=== PATIENT | male | born 1995 | race Caucasian/White ===

== ENCOUNTER 2017-03-11 13:39 | Emergency (ER) | payer OTHER ==
[2017-03-11 13:42] VITALS: BP 138/61; PULSE 78; RESP 18; TEMP 97.5
[2017-03-11] MEDS ORDERED: IBUPROFEN 800 MG TAB PO STA (13:52)
--- NOTE | 2017-03-11 14:05 | ED ---
Lower Extremity Injury HPI - General Chief Complaint: Extremity Injury, Lower Stated Complaint: L ankle injury Time Seen by Provider: 03/11/17 13:47 Source: patient Mode of arrival: ambulatory Limitations: no limitations - History of Present Illness Initial Comments: Patient is a 21-year-old white male presenting to the emergency department with complaints of left ankle pain. Patient states he jumped out of a tractor and believes he landed on his ankle wrong. Patient unsure if he everted or inverted his ankle. Patient states that injury happened at 10 AM today. Patient denies previous injury or surgery to left lower extremity. Patient was able to ambulate at the scene of accident and is ambulating in the emergency department. No treatment prior to arrival. - Related Data Previous Rx's Medication Instructions Recorded predniSONE 20 mg PO DIRECTED #30 tab 03/12/15 Ibuprofen [Motrin] 800 mg PO TID #12 tab 03/11/17 Allergies Allergy/AdvReac Type Severity Reaction Status Date / Time No Known Allergies Allergy Verified 03/11/17 13:42 Review of Systems ROS Statement: Those systems with pertinent positive or pertinent negative responses have been documented in the HPI. ROS Other: All systems not noted in ROS Statement are negative. Past Medical History Past Medical History: No Reported History History of Any Multi-Drug Resistant Organisms: None Reported Past Surgical History: No Surgical Hx Reported Past Psychological History: No Psychological Hx Reported Smoking Status: Former smoker Past Alcohol Use History: None Reported Past Drug Use History: None Reported General Exam Limitations: no limitations General appearance: alert, in no apparent distress Head exam: Present: atraumatic, normocephalic, normal inspection Eye exam: Present: normal appearance Neck exam: Present: normal inspection, full ROM. Absent: tenderness, lymphadenopathy Respiratory exam: Present: normal lung sounds bilaterally. Absent: respiratory distress, wheezes, rales, rhonchi Cardiovascular Exam: Present: regular rate, normal rhythm, normal heart sounds. Absent: systolic murmur GI/Abdominal exam: Present: soft, normal bowel sounds. Absent: tenderness Left Lower Leg exam: Present: normal inspection, full ROM. Absent: tenderness, swelling Ankle exam: Present: normal inspection, full ROM, tenderness (Tenderness inferior to left lateral malleolus ). Absent: swelling, abrasion, ecchymosis, anterior draw sign Foot/Toe exam: Present: normal inspection, full ROM. Absent: tenderness, swelling Neurovascular tendon exam: Present: no vascular compromise. Absent: pulse deficit, abnormal cap refill, motor deficit, sensory deficit, tendon deficit, extremity cold to touch, pallor, foot drop, significant pain with passive ROM of distal joint Gait: observed and normal Back exam: Present: normal inspection, full ROM Neurological exam: Present: alert, oriented X3, normal gait, other (No focal deficits noted) Psychiatric exam: Present: normal affect, normal mood Skin exam: Present: warm, dry, intact, normal color Course Vital Signs 03/11/17 13:41 Temperature 97.5 F L Pulse Rate 78 Respiratory 18 Rate Blood Pressure 138/61 O2 Sat by Pulse 99 Oximetry Medical Decision Making - Medical Decision Making Left ankle strain. X-ray negative for dislocation or fracture. Patient instructed to follow-up with orthopedic service if pain persists for more than 7 -10 days. Patient instructed to return to the emergency department with new or worsening symptoms. Patient agrees to plan of care. Discharge instructions and return parameters reviewed. - Radiology Data Radiology results: report reviewed Left ankle x-ray: No evidence for fracture or dislocation. Ankle mortise is intact. Soft tissues are within normal limits. As read by Dr. Young. Disposition Clinical Impression: Left ankle strain Disposition: HOME SELF-CARE Condition: Good Instructions: Ankle Strain (ED) Additional Instructions: Avoid activity that causes pain Ice 20 minutes 4 times a day usually for 2-3 days Keep elevated as much as possible 24-48 hours. Continue Motrin 800 mg 3 times a day for next 24-48 hours. Return to the emergency department with symptoms of increased swelling, pain, numbness, tingling, or foot feeling cold to touch. Follow-up with orthopedic service if pain persist more than 7-10 days. Prescriptions: Ibuprofen [Motrin] 800 mg PO TID #12 tab Referrals: Joseph Mayberry MD [STAFF PHYSICIAN] - 1-2 days None,Stated [Primary Care Provider] - 1-2 days Time of Disposition: 14:11
--- NOTE | 2017-03-11 14:09 | XR ---
EXAMINATION TYPE: XR ankle complete LT DATE OF EXAM: 03/11/2017 COMPARISON: NONE HISTORY: Pain TECHNIQUE: 3 views of the left ankle are submitted for evaluation. FINDINGS: There is no evidence for fracture or dislocation. Ankle mortise is intact. Soft tissues are within normal limits. IMPRESSION: 1. No evidence for acute fracture.
== END 2017-03-11 14:24 | disposition home or self-care (01) ==
LOC: EC 13:39
DX: S96.912A Strain of unspecified muscle and tendon at ankle and foot level, left foot, initial encounter (principal); Z87.891 Personal history of nicotine dependence; W30.9XXA Contact with unspecified agricultural machinery, initial encounter
CPT/HCPCS: 99283

== ENCOUNTER 2017-04-11 13:20 | Emergency (ER) | payer OTHER ==
[2017-04-11 13:29] VITALS: RESP 17
--- NOTE | 2017-04-11 13:37 | ED ---
General Adult HPI - General Chief complaint: Extremity Injury, Lower Stated complaint: IHS/Ankle Pain Time Seen by Provider: 04/11/17 13:25 Source: patient, RN notes reviewed Mode of arrival: ambulatory Limitations: no limitations - History of Present Illness Initial comments: This is a 21-year-old male who presents emergency Department complaining of left ankle pain. Patient states she jumped off a truck at work and twisted his ankle. Patient complains of lateral ankle pain mostly been a little bit of medial ankle pain as well. Patient denies any upper leg pain any knee pain or hip pain. Patient denies any foot pain. - Related Data Previous Rx's Medication Instructions Recorded Hydrocodone/Acetaminophen [[place] 1 each PO Q4HR PRN #20 tab 04/11/17 5-325] Ibuprofen [Motrin] 600 mg PO Q6HR PRN #20 tab 04/11/17 Allergies Allergy/AdvReac Type Severity Reaction Status Date / Time No Known Allergies Allergy Verified 04/11/17 13:43 Review of Systems ROS Statement: Those systems with pertinent positive or pertinent negative responses have been documented in the HPI. ROS Other: All systems not noted in ROS Statement are negative. Past Medical History Past Medical History: No Reported History History of Any Multi-Drug Resistant Organisms: None Reported Past Surgical History: No Surgical Hx Reported Past Psychological History: No Psychological Hx Reported Smoking Status: Current every day smoker Past Alcohol Use History: None Reported Past Drug Use History: None Reported General Exam - General Exam Comments Initial Comments: GENERAL Patient is well-developed and well-nourished. Patient is in mild distress. EYES Patient's pupils are equal and round. Extraocular motion is intact SKIN Unremarkable NEURO The patient is alert and oriented 3 PYSCH Patient has normal interpersonal interactions. MUSCULOSKELETAL Left ankle is swollen laterally and tender laterally with a little medial malleolus tenderness. Limitations: no limitations Course Vital Signs 04/11/17 13:27 Temperature 97.6 F Pulse Rate 94 Respiratory 17 Rate Blood Pressure 138/64 O2 Sat by Pulse 96 Oximetry Procedures - Orthopedic Splinting/Casting Injury #1 Side: left Lower Extremity Injury Location: lower leg Lower Extremity Immobilizer: posterior splint Additional Comments: This is a short leg splint. Medical Decision Making - Medical Decision Making X-ray showed no acute fracture. Patient was unable to ambulate so I placed the patient is a splint and told to follow up with or so and not to have any weightbearing on that leg. Disposition Clinical Impression: Ankle sprain Disposition: HOME SELF-CARE Condition: Good Instructions: Ankle Sprain (ED) Prescriptions: Hydrocodone/Acetaminophen [Goodrich 5-325] 1 each PO Q4HR PRN #20 tab PRN Reason: Pain Ibuprofen [Motrin] 600 mg PO Q6HR PRN #20 tab PRN Reason: For pain Referrals: None,Stated [Primary Care Provider] - 1-2 days Time of Disposition: 14:35
--- NOTE | 2017-04-11 13:53 | XR ---
EXAMINATION TYPE: XR ankle complete LT DATE OF EXAM: 04/11/2017 COMPARISON: NONE HISTORY: Pain TECHNIQUE: 3 views of the left ankle are submitted for evaluation. FINDINGS: There is no evidence for fracture or dislocation. Ankle mortise is intact. Lateral soft tis tabatha swelling noted. IMPRESSION: 1. No evidence for acute fracture.
[2017-04-11 14:38] VITALS: BP 123/60; PULSE 82; TEMP 99.4
== END 2017-04-11 15:08 | disposition home or self-care (01) ==
LOC: EC 13:20
DX: S93.402A Sprain of unspecified ligament of left ankle, initial encounter (principal); F17.200 Nicotine dependence, unspecified, uncomplicated; X50.1XXA Overexertion from prolonged static or awkward postures, initial encounter; Y93.39 Activity, other involving climbing, rappelling and jumping off; Y99.0 Civilian activity done for income or pay
CPT/HCPCS: 29515; 99283

== ENCOUNTER 2019-11-06 12:49 | Emergency (ER) | payer BC, OTHER ==
[2019-11-06 13:00] VITALS: RESP 18; TEMP 98.7
[2019-11-06] MEDS ORDERED: ACETAMINOPHEN TAB 500 MG TAB PO STA (13:16)
--- NOTE | 2019-11-06 13:36 | XR ---
EXAMINATION TYPE: XR shoulder complete RT DATE OF EXAM: 11/06/2019 COMPARISON: NONE HISTORY: Pain TECHNIQUE: Shoulder examined in 3 sections FINDINGS: The humeral head articulates with the glenoid. The acromio-clavicular junction is normal. No acute fractures or dislocations are evident. A follow up study can be performed 7-10 days from acute trauma for continued pain. IMPRESSION: 1. Normal two-view right Shoulder
--- NOTE | 2019-11-06 13:48 | CT ---
EXAMINATION TYPE: CT brain rola car[facility] DATE OF EXAM: 11/06/2019 COMPARISON: None HISTORY: fall, head injury, confusion CT DLP: 1623.[address] Brain: Unenhanced CT of the brain was performed. The ventricles, basal cisterns and sulci overlying the cerebral convexities demonstrate a normal appe arance. There is no evidence for intracranial hemorrhage or sulcal effacement. No mass effects are seen. If symptoms persist consider MRI. Osseous calvarium is intact. IMPRESSION: No acute intracranial process CT Cervical Spine: Unenhanced CT of the cervical spine was performed with bone and soft tissue window settings submitted . Coronal and sagittal reconstruction is obtained. There is normal alignment and prevertebral soft tissues. I do not see evidence for fracture or sublu xation. No significant degenerative changes are present. The lung apices are clear. IMPRESSION: No evidence for acute fracture or subluxation of the cervical spine.
--- NOTE | 2019-11-06 14:03 | ED ---
Fall HPI - General Chief Complaint: Fall Stated Complaint: slip & fall/head & shoulder pain Time Seen by Provider: 11/06/19 12:57 Source: patient, family, RN notes reviewed, old records reviewed Mode of arrival: ambulatory - History of Present Illness Initial Comments: 22-year-old male presents today for eval for concern for slipped and fallen on ice today. Complains of right-sided headache and head injury from the falls over shoulder pain. Patient reports that he had felt confused for a few minutes after he had fallen and injured. He is on blood thinners. Denies any other significant symptoms. He reports pain with range of motion of the right shoulder. He is right-handed. - Related Data Previous Rx's Medication Instructions Recorded Hydrocodone/Acetaminophen [[place] 1 each PO Q4HR PRN #20 tab 04/11/17 5-325] Ibuprofen [Motrin] 600 mg PO Q6HR PRN #20 tab 04/11/17 Ibuprofen [Motrin] 600 mg PO Q6HR PRN #20 tab 11/06/19 Allergies Allergy/AdvReac Type Severity Reaction Status Date / Time No Known Allergies Allergy Verified 11/06/19 12:59 Review of Systems ROS Statement: Those systems with pertinent positive or pertinent negative responses have been documented in the HPI. ROS Other: All systems not noted in ROS Statement are negative. Past Medical History Past Medical History: No Reported History History of Any Multi-Drug Resistant Organisms: None Reported Past Surgical History: No Surgical Hx Reported Past Psychological History: No Psychological Hx Reported Smoking Status: Current every day smoker Past Alcohol Use History: None Reported Past Drug Use History: None Reported General Exam - General Exam Comments Initial Comments: 24-year-old male. Alert and oriented 3. No distress. Limitations: no limitations General appearance: alert, in no apparent distress Head exam: Present: atraumatic, normocephalic, normal inspection, other (Patient has contusion of the right scalp.) Eye exam: Present: normal appearance, PERRL, EOMI. Absent: scleral icterus, conjunctival injection, periorbital swelling ENT exam: Present: normal exam, mucous membranes moist Neck exam: Present: normal inspection. Absent: tenderness, meningismus, lymphadenopathy Respiratory exam: Present: normal lung sounds bilaterally. Absent: respiratory distress, wheezes, rales, rhonchi, stridor Cardiovascular Exam: Present: regular rate, normal rhythm, normal heart sounds. Absent: systolic murmur, diastolic murmur, rubs, gallop, clicks GI/Abdominal exam: Present: soft, normal bowel sounds. Absent: distended, tenderness, guarding, rebound, rigid Extremities exam: Present: full ROM, normal capillary refill, other (pain with reaching above head on R shoulder, no deformity. Patient is neurovascularly int act, cap refill less than 2 seconds on hand. ). Absent: normal inspection, tenderness, pedal edema, joint swelling, calf tenderness Back exam: Present: normal inspection Neurological exam: Present: alert, oriented X3, CN II-XII intact Psychiatric exam: Present: normal affect Course Vital Signs 11/06/19 11/06/19 12:57 14:15 Temperature 98.7 F Pulse Rate 83 88 Respiratory 18 18 Rate Blood Pressure 143/68 145/65 O2 Sat by Pulse 98 100 Oximetry Medical Decision Making - Medical Decision Making 24-year-old male presents today for her concern for fall, right head injury and right shoulder injury. Patient reports confusion after his head injury. CT was performed shows no evidence of any acute injury cranial abnormality and C- spine was negative as well. Patient's right shoulder x-ray was reviewed to be normal. No fracture. Discussed with the impact of falling could still likely has a rotator cuff tear or ligamentous injury. I discussed Patient in follow-up with orthopedic on the road. Discussed Motrin Tylenol for pains. Patient is agreeable to treatment plan will comply. Return parameters were discussed. - Radiology Data Radiology results: report reviewed CT brain and C-spine are negative for any acute process. Right shoulder x-ray was reviewed and normal. Disposition Clinical Impression: Concussion, Head injury, Shoulder strain Disposition: HOME SELF-CARE Condition: Good Instructions (If sedation given, give patient instructions): Rotator Cuff Injury (ED), Concussion (ED) Additional Instructions: Patient advised to follow-up with Orthopedic. Patient can take Motrin Tylenol for headache and shoulder pain. Ice the shoulder. Patient can return to ED if any alarming signs or symptoms occur. Prescriptions: Ibuprofen [Motrin] 600 mg PO Q6HR PRN #20 tab PRN Reason: Pain Is patient prescribed a controlled substance at d/c from ED?: No Referrals: None,Stated [Primary Care Provider] - 1-2 days Pablo Crockett, [Medical Doctor] - 1-2 days Time of Disposition: 14:09
[2019-11-06 14:21] VITALS: BP 145/65; PULSE 88
== END 2019-11-06 14:20 | disposition home or self-care (01) ==
LOC: EC 12:49
DX: S06.0X0A Concussion without loss of consciousness, initial encounter (principal); S46.911A Strain of unspecified muscle, fascia and tendon at shoulder and upper arm level, right arm, initial encounter; S00.03XA Contusion of scalp, initial encounter; F17.200 Nicotine dependence, unspecified, uncomplicated; Z79.01 Long term (current) use of anticoagulants; W00.0XXA Fall on same level due to ice and snow, initial encounter; Y92.89 Other specified places as the place of occurrence of the external cause
CPT/HCPCS: 70450; 72125; 99284